=== PATIENT | female | born 1960 | race Caucasian/White ===

== ENCOUNTER 2017-10-06 06:21 | Emergency (ER) | payer OTHER ==
[~2017-10-06] VITALS: Ht 160 cm; Wt 75.0 kg
[~2017-10-06 06:21] MED LIST: CITA10TA4 PO; CITA20 PO; CITA20TA4 PO; GABA600T PO; SPIR25TA PO
[2017-10-06 06:23] VITALS: BP 113/69; PULSE 97; RESP 16; TEMP 98.2; O2SAT 100
[2017-10-06] MEDS ORDERED: IBUP-232 PO (06:47)
[2017-10-06] MEDS ORDERED: GABA800T PO (06:47)
[2017-10-06] MEDS ORDERED: GABA600T PO (06:47)
[2017-10-06] MEDS ORDERED: PRED10PA2 PO (06:47)
[2017-10-06] MEDS ORDERED: CITA20TA4 PO (06:47)
[2017-10-06] MEDS ORDERED: SPIR50TA PO (06:47)
[2017-10-06] MEDS ORDERED: muscle relaxer (06:47)
[2017-10-06] MEDS ORDERED: NORC5TAB PO (06:54)
--- NOTE | 2017-10-06 06:59 | PD ---
HPI Chief Complaint: Back/ Neck Pain or Injury Time Seen by Provider: 06:53 Travel History International Travel<30 days: No Contact w/Intl Traveler<30days: No Traveled to known affect area: No History of Present Illness HPI Patient comes in complaining of worsening neck pain going into her right upper extremity. Patient reports symptoms have been ongoing for 2 weeks. Patient states she saw her pain management doctor who did injections in her neck ordered an MRI, and increased her gabapentin. Patient states she been taking all medication as prescribed along with steroids ibuprofen and a muscle relaxer however pain continues to get worse. Patient states injection done about a week ago. Pain is worse certain movement of right upper extremity. Denies anything making it worse. Describes pain is throbbing aching sensation. Denies any trauma, fevers, IV drug use, loss change in bowel or bladder, headaches, chest pain, shortness of breath, or numbness or tingling anywhere. Patient reports she had to stay one position all weekend secondary to the pain. PFSH Past Medical History Depression: Yes Diminished Hearing: No Tetanus Vaccination: Unknown Influenza Vaccination: Yes ?: Not LMP: menapuase Past Surgical History Abdominal Surgery: Yes (ADHESIONS REMOVED) Appendectomy: Yes Gynecologic Surgery: Yes (ENDOMETRIOSIS) Social History Alcohol Use: Yes (OCCANSIONALLY WINE) Tobacco Use: Yes (3/4 PPD) Substance Use: No Allergies-Medications (Allergen,Severity, Reaction): Coded Allergies: codeine (Unverified Allergy, Intermediate, Hallucinations, 10/06/17) Reported Meds & Prescriptions Reported Meds & Active Scripts Active [place] (Hydrocodone-Acetaminophen) 5 Mg-325 Mg Tab 1 Tab PO Q8HR PRN Reported Prednisone (48) 10 mg tab Dose Pack (Prednisone) 10 Mg Dspk 10 Mg PO DIRECTED [muscle relaxer] Ibuprofen 600 Mg Tab 600 Mg PO Q8H PRN Citalopram (Citalopram Hydrobromide) 20 Mg Tab 30 Mg PO DAILY Gabapentin 800 Mg Tab 1,200 Mg PO HS Gabapentin 600 Mg Tab 600 Mg PO DAILY@0600 Spironolactone 50 Mg Tab 50 Mg PO BIDPC Review of Systems Except as stated in HPI: all other systems reviewed are Neg Physical Exam Narrative GENERAL: Well-developed, overly nourished, appears uncomfortable, and non-ill appearing. Patient is sitting in bed with her right elbow flexed grabbing her neck stating this is the only position that doesn't hurt as much. SKIN: Focused skin assessment warm and dry. HEAD: Atraumatic. Normocephalic. EYES: Pupils equal and round. EOMI. No scleral icterus. No injection or drainage. ENT: No nasal bleeding or discharge. Mucous membranes pink and moist. NECK: Trachea midline. No no tenderness, mass or midline cervical spine. Supple. No nuclear rigidity. CARDIOVASCULAR: Regular rate and rhythm. No murmur appreciated. RESPIRATORY: No accessory muscle use. No respiratory distress. Clear to auscultation. Breath sounds equal bilaterally. MUSCULOSKELETAL: No obvious deformities. No clubbing. No cyanosis. No edema. Full range of motion. Shoulder:FROM equal BL with passive flexion, extension, Abduction, Adduction, internal/external rotation, and pronation/supination. Sensation equal BL deltoid muscles. Pulses equal BL distal to injury. Capillary refill less than 2 seconds distal to injury and equal BL. FROM distal to injury and equal BL. Strength distal to injury equal BL. NV intact distal to injury equal BL. Flexion and extension of thumb equal BL. Equal strength and movement with abduction/adductions of BL fingers. [employer] strength equal BL. NEUROLOGICAL: Awake and alert. No obvious cranial nerve deficits. Motor grossly within normal limits. Normal speech. PSYCHIATRIC: Appropriate mood and affect; insight and judgment normal. Data Data Last Documented VS Vital Signs Date Time Temp Pulse Resp B/P (MAP) Pulse Ox O2 Delivery O2 Flow Rate FiO2 10/06/17 07:11 10/06/17 06:23 98.2 97 16 100 Room Air Orders Orders Acetamin-Hydrocod 325-5 Mg ([place] 5-325 (10/06/17 07:00) Ed Discharge Order (10/06/17 07:00) [facility] Medical Decision Making Medical Screen Exam Complete: Yes Emergency Medical Condition: Yes Differential Diagnosis Acute on chronic pain, cervical radiculopathy, abscess, osteomyelitis, other Narrative Course MRI [facility] performed on September 30 of this year shows disc protrusions at C5/C6 and C6/C7 with mild spinal canal stenosis. [employer] was reviewed. Discussed with patient and potential treatment options. Patient was given the option of continuing her current medication just following up with her pain management doctor versus receiving a short course of narcotic pain medication to help alleviate her pain until she is able get back in with her pain management doctor for possible medication adjustments. Patient states she is not under any contract with her pain management doctor that she is aware. After much deliberation patient is wanting to try stronger pain medication versus just waiting to follow up with her pain management doctor. The patient presented complaining of neck pain with radiation of pain down the arm. There was no history of recent fall or trauma. There was no evidence to support atypical cardiac/angina as an etiology. There is also no evidence to suggest vascular pathology such as TAA or carotid dissection. No fevers or other evidence to suspect infectious processes, abscess, osteomyelitis etc. The patients neurological exam is normal with normal motor and sensory. There is no motor deficits reported or found, and no bowel or bladder incontinence or retention. I suspect the pain is mechanical in nature with dermatomal distribution/ radiculopathy. Clinical suspicion, plan of care and management was discussed with the patient. The patient was instructed to follow up with their health care provider. The patient was also instructed to return if the pain worsened, changed, or developed weakness or bowel or bladder trouble. The patient agreed with plan. Patient in no obvious distress upon re-evaluation. Patient was asked if they wanted to speak to my attending, which the patient did not wish to do at this time. Any questions/concerns in reference to patient diagnosis/condition discussed and clarified prior to patient's discharge. Reinforced sheer importance of close follow up with patient's primary physician or primary care clinic, pain management, and/or neurosurgeon. Instructed patient to return to ED immediately, if symptoms return/worsen. Patient showed understanding of above instructions. Further instructions and recommendations were detailed in discharge paperwork. Patient ambulated without difficulty out of ED at discharge. Diagnosis Primary Impression: Cervical radiculopathy Patient Instructions: Cervical Radiculopathy (ED), General Instructions, Narcotic given in the ED Additional Instructions: Follow-up with your primary care physician, pain management doctor, and neurosurgeon this week for reevaluation. Take all medication as prescribed. Return to the emergency department if symptoms get worse. Med/Other Pt SpecificInfo: Prescription(s) given Scripts Hydrocodone-Acetaminophen ([place]) 5 Mg-325 Mg Tab 1 TAB PO Q8HR Y for PAIN GREATER THAN 7, #7 TAB 0 Refills Prov: Tess Gaines MD 10/06/17 Disposition: 01 DISCHARGE HOME Condition: Stable Baldemar Coleman Oct 06, 2017 06:59
[2017-10-06] MEDS ORDERED: ACETAMINOPHEN/HYDROcodone 325 MG/5 MG TAB PO ONE (07:00)
== END 2017-10-06 07:40 | disposition home or self-care (01) ==
LOC: NEPD 06:21
DX: M54.12 Radiculopathy, cervical region (principal); F17.200 Nicotine dependence, unspecified, uncomplicated; Z86.59 Personal history of other mental and behavioral disorders
CPT/HCPCS: 99283